=== PATIENT | female | born 1950 | race Caucasian/White ===

== ENCOUNTER 2017-10-21 05:16 | Day surgery (SDC) | payer MEDICAID ==
[2017-10-20 15:27] LABS: HEMATOCRIT 44.3 % (36.0-48.0); MCH 31.5 pg (26.0-34.0); MCHC 33.9 g/dL (31.0-37.0); MCV 93.1 fL (80.0-100.0); MEAN PLATELET VOLUME 10.4 fL (7.4-10.4); RBC 4.76 10x6/uL (4.00-5.40); RDW 13.6 % (11.5-14.5); WBC 16.1 10x3/uL (4.8-10.8)
[2017-10-20 15:56] LABS: CALC OSMOLALITY 282 mosm/kg (275-300); CALCIUM 9.3 mg/dL (8.5-10.1); CARBON DIOXIDE 24.7 mmol/L (21.0-32.0); CHLORIDE - SERUM 105 mmol/L (98-107); CREATININE - SERUM 0.8 mg/dL (0.6-1.3); GLUCOSE 90 mg/dL (74-106); POTASSIUM - SERUM 4.1 mmol/L (3.5-5.1); SODIUM 140 mmol/L (136-145); UREA NITROGEN 23 mg/dL (7-18); eGFR NON AFRICAN AMERICAN 76 mL/min (90-120)
[~2017-10-21] VITALS: Ht 162.6 cm; Wt 102.1 kg
--- NOTE | ~2017-10-21 | OP ---
PATIENT NAME: JOSH BAUER MEDICAL RECORD: [id number] :54 LOCATION:DJoseOPS ADMISSION DATE: SURGEON: SANDRA HENDERSON DPM DATE OF OPERATION: 10/21/2017 PREOPERATIVE DIAGNOSES: 1. Osteoarthritis, right first MPJ, with hallux varus. 2. Fracture, right fifth metatarsal. 3. Spur, right dorsal hallux IPJ. POSTOPERATIVE DIAGNOSES: 1. Osteoarthritis, right first MPJ, with hallux varus. 2. Fracture, right fifth metatarsal. 3. Spur, right dorsal hallux IPJ. PROCEDURES: 1. Right first MPJ fusion. 2. ORIF, right fifth metatarsal. 3. Spur excision, right dorsal IPJ of the hallux. ANESTHESIA: General with local infiltrate utilizing lidocaine and Marcaine plain. A 20 cc total around the first ray of the right foot as well as the proximal lateral aspect of the right foot. HEMOSTASIS: Right thigh tourniquet at 350 mmHg. PREOPERATIVE DETAILS: The patient was taken to the OR and placed on the operating table in a supine position. This was followed by induction of general anesthesia and infiltration of local anesthetic. The right extremity was then prepped and draped in usual aseptic technique followed by exsanguination of the extremity and inflation of tourniquet. PROCEDURE #1: Right first MPJ fusion. A #15 blade was used to create a 5-cm linear incision over the dorsal aspect of the right first MPJ. The incision was deepened down through subcutaneous tissue. A longitudinal capsular incision was made, exposing the dorsal aspect of the head of the first metatarsal and base of the phalanx. The soft tissue was freed from the joint. The plantar structures were freed with a scoop elevator. At this time, a guidewire was placed in the head of the first metatarsal up to the shaft and a cone reamer was used to remove the cartilaginous surface. The K-wire was then removed. Utilizing curettes, the cartilaginous surface of the base of the proximal phalanx was removed. A rongeur was used to clean up the joint around the periphery. Temporary fixation was placed and a 5-hole plate with one screw crossing the fusion site was placed with excellent rigid internal fixation and C-arm verifying good placement and alignment. Wound was flushed. The capsule was reapproximated. Prior to that, there was a small deficit on the medial aspect of the fusion site where some bone paste or putty was injected to fill the deficit. The wound was flushed. The capsule was repaired with 2-0 Vicryl, the subcutaneous tissue with 4-0 Rapide, and the skin was closed with 4-0 Rapide in a subcuticular technique followed by Dermabond. PROCEDURE #2: ORIF, right fifth metatarsal. Utilizing fluoroscopy as a guide, a small stab incision was made approximately 3 cm proximal to the styloid process. Blunt dissection was used under fluoroscopy to access the base of the fifth metatarsal. A K-wire for guide was placed in the fifth metatarsal OPERATIVE REPORT [id number] JOSH BAUER starting at the base into the shaft. Verification of being in the shaft was verified via AP and lateral fluoroscopy. A drill was then placed over the K-wire. It was deemed necessary that a 4.5 screw be used. The hole was then tapped and a 48-mm screw was then placed in the deficit under fluoroscopy guide, noting excellent fixation and purchase of the screw as well as alignment of the fracture. The K-wire was then removed. Fluoroscopy was used to verify good placement and the wound was closed with 4-0 Rapide in a simple interrupted technique followed by Dermabond. PROCEDURE #3: Spur removal, dorsal aspect of the right hallux IPJ. A #15 blade was used to create a linear incision on the dorsal aspect of the medial IPJ of the right hallux. The incision was deepened down to the joint capsule. Linear capsular incision was made and the spur was freed from surrounding soft tissue structures. It was removed with a rongeur and smoothed with a bone rasp. The wound was flushed and the skin was reapproximated with 4-0 Rapide in a simple interrupted technique. The incision itself was approximately 7 mm in length. Adaptic, 4 x 4, and Conform were used to dress all wounds followed by application of modified Perez compression dressing. Tourniquet was deflated. POSTOPERATIVE DETAILS: The patient tolerated the procedure well and left the OR with vital signs stable and vascular status at preop levels. The patient was transported to recovery per anesthesia in stable condition. TRANSINT:[id number] Voice Confirmation ID: [id number] DOCUMENT ID: [id number] SANDRA HENDERSON DPM at 1150 CC: [id number] DICTATION DATE: 10/21/17 1029 BENEFITS COUNSELOR: 10/21/17 1126 [facility] [address] [id number]
[~2017-10-21 05:16] MED LIST: ASCORBIC ACID500 MG PO; ASPIRIN EC81 M1 PO; BENADRYL25 MG PO; BUPROPION HCL100 MG PO; CALCIUM/MG/ZINC PO; CENTRUM SILVER1 EAC3 PO; CLARITIN 10 MG10 MG PO; FLAXSEED OIL1000 MG PO; FLUTICASONE PRO16 GM NASAL; LASIX20 MG PO; LIPITOR40 MG PO; METOPROLOL TART25 MG PO; OMEGA 3 FISH OI1 CAP PO; PAROXETINE HCL10 MG PO; PRINIVIL20 MG PO; PROAIR HFA8.5 GM INH; VITAMIN B-12500 MCG PO; VITAMIN D31000 UNIT PO
[2017-10-21 07:31] VITALS: Ht 162.6 cm; Wt 102.1 kg
== END 2017-10-21 13:00 | disposition home or self-care (01) ==
LOC: D.OPS 05:16 → D.PAN 08:00 → D.OPS 08:00
PROVIDERS: Anesthesiology
DX: M18.11 Unilateral primary osteoarthritis of first carpometacarpal joint, right hand (principal); M20.31 Hallux varus (acquired), right foot; S92.351A Displaced fracture of fifth metatarsal bone, right foot, initial encounter for closed fracture; X58.XXXA Exposure to other specified factors, initial encounter; M77.51 Other enthesopathy of right foot and ankle; Z01.812 Encounter for preprocedural laboratory examination

== ENCOUNTER → 2018-02-16 18:31 | Outpatient (CLI) | payer MEDICARE, MEDICAID ==
[2017-10-21 07:31] VITALS: BMI 38.7
== END | disposition home or self-care (01) ==
LOC: D.MAMMO 09:15
DX: Z12.31 Encounter for screening mammogram for malignant neoplasm of breast (principal)

== ENCOUNTER 2018-03-11 08:00 | Outpatient (CLI) | payer MEDICARE, MEDICAID ==
[2017-10-21 07:31] VITALS: BMI 38.7
== END 2018-03-11 09:00 | disposition home or self-care (01) ==
LOC: D.MAMMO 08:00
DX: R92.8 Other abnormal and inconclusive findings on diagnostic imaging of breast (principal)

== ENCOUNTER → 2018-05-19 08:59 | Outpatient (CLI) | payer MEDICARE, MEDICAID ==
[2017-10-21 07:31] VITALS: BMI 38.7
== END | disposition home or self-care (01) ==
LOC: D.CT 08:00
DX: R10.32 Left lower quadrant pain (principal)

== ENCOUNTER 2018-06-25 07:07 | Day surgery (SDC) | payer MEDICARE, MEDICAID ==
[~2018-06-25] VITALS: Ht 162.6 cm; Wt 98.9 kg
--- NOTE | ~2018-06-25 | OP ---
PATIENT NAME: JOSH BAUER MEDICAL RECORD: [id number] :54 LOCATION:D.OPS ADMISSION DATE: SURGEON: SHEKHAR TEMPLETON MD DATE OF OPERATION: 06/25/2018 PREOPERATIVE DIAGNOSES: 1. Hiatal hernia. 2. Coronary artery disease. 3. Hypertension. 4. Hypercholesterolemia. 5. Chronic obstructive pulmonary disease. 6. Morbid obesity with a body mass index of 38. POSTOPERATIVE DIAGNOSES: 1. Hiatal hernia. 2. Coronary artery disease. 3. Hypertension. 4. Hypercholesterolemia. 5. Chronic obstructive pulmonary disease. 6. Morbid obesity with a body mass index of 38. PROCEDURE: EGD with biopsy. SURGEON: Shekhar Templeton MD REPORT OF PROCEDURE: An Olympus endoscope was advanced through the mouth and esophagus. We passed through the GE junction into the hiatal hernia. This extended about 6 cm down through the diaphragmatic hiatus and into the remaining body and antrum of the stomach. We passed through this into the second portion of the duodenum. There was no sign of inflammatory changes present in the duodenum. As we pulled back, the stomach itself appeared to be normal with no signs of any masses, lesions or ulcerations. The biopsy was taken of the antrum of the stomach and sent off for permanent specimen. Retroflexed view showed the patient had a large hiatal hernia. As we pulled back into this hiatal hernia, we found that the GE junction was sitting at about 34 cm from the teeth. A biopsy was taken at the GE junction. The Z-line appeared to be straight and intact with no signs of any inflammatory changes and there was no sign of esophagitis. At this point, the insufflation and the scope were removed. As we pulled back through the esophagus again no masses, lesions or ulcerations were seen. COMPLICATIONS: None. CONDITION: Stable. ANESTHESIA: TIVA. BLOOD LOSS: Minimal. TRANSINT:[id number] Voice Confirmation ID: [id number] DOCUMENT ID: [id number] OPERATIVE REPORT [id number] LIZETTEMONICA SALMONTHISienna El SHEKHAR TEMPLETON MD at 0916 CC: BRIA ZAMUDIO MD [id number] DICTATION DATE: 06/25/18 1118 WIRELESS TECHNICIAN: 06/25/18 1127 [facility] 06/25/18 [place] [address]
[~2018-06-25 07:07] MED LIST changes: +BUPROPION HCL100 M1 PO; -BUPROPION HCL100 MG PO
[2018-06-25 07:56] LABS: HEMATOCRIT 42.2 % (36.0-48.0); HEMOGLOBIN 14.2 g/dL (12-16); LYMPHOCYTES 31.1 % (15-50); MCH 31.1 pg (26.0-34.0); MCHC 33.6 g/dL (31.0-37.0); MCV 92.3 fL (80.0-100.0); MEAN PLATELET VOLUME 10.1 fL (7.4-10.4); NEUTROPHILS 61.1 % (40-80); PLATELET COUNT 327 10x3/uL (130-400); RBC 4.57 10x6/uL (4.00-5.40); WBC 10.9 10x3/uL (4.8-10.8)
[2018-06-25 08:05] LABS: CALCIUM 8.5 mg/dL (8.5-10.1); CARBON DIOXIDE 28.1 mmol/L (21.0-32.0); CREATININE - SERUM 0.9 mg/dL (0.6-1.3); POTASSIUM - SERUM 4.1 mmol/L (3.5-5.1)
[2018-06-25 08:52] VITALS: BP 135/83; Ht 162.6 cm; Wt 98.9 kg
== END 2018-06-25 12:05 | disposition home or self-care (01) ==
LOC: D.OPS 07:07
PROVIDERS: Anesthesiology
DX: K44.9 Diaphragmatic hernia without obstruction or gangrene (principal); I10 Essential (primary) hypertension; E66.9 Obesity, unspecified

== ENCOUNTER 2018-07-08 06:45 | Inpatient (IN) | payer MEDICARE, MEDICAID ==
[2018-07-07 16:15] LABS: BASOPHILS 0.5 % (0-2); EOSINOPHILS 3.1 % (0-7); HEMATOCRIT 44.1 % (36.0-48.0); HEMOGLOBIN 14.6 g/dL (12-16); IMMATURE GRANULOCYTES 0.4 % (0-5); MCH 31.5 pg (26.0-34.0); MCHC 33.1 g/dL (31.0-37.0); MCV 95.2 fL (80.0-100.0); MEAN PLATELET VOLUME 10.6 fL (7.4-10.4); MONOCYTES 10.6 % (2-11); NEUTROPHILS 52.4 % (40-80); PLATELET COUNT 358 10x3/uL (130-400); RBC 4.63 10x6/uL (4.00-5.40); RDW 13.6 % (11.5-14.5); WBC 10.7 10x3/uL (4.8-10.8)
[2018-07-07 16:23] LABS: CALC OSMOLALITY 279 mosm/kg (275-300); CALCIUM 8.9 mg/dL (8.5-10.1); CARBON DIOXIDE 28.6 mmol/L (21.0-32.0); CHLORIDE - SERUM 105 mmol/L (98-107); CREATININE - SERUM 0.7 mg/dL (0.6-1.3); GLUCOSE 101 mg/dL (74-106); POTASSIUM - SERUM 3.7 mmol/L (3.5-5.1); SODIUM 140 mmol/L (136-145); UREA NITROGEN 16 mg/dL (7-18); eGFR NON AFRICAN AMERICAN 89 mL/min (90-120)
[~2018-07-08] VITALS: Ht 162.6 cm; Wt 100.2 kg
--- NOTE | ~2018-07-08 | MORECARE ---
CASE MANAGEMENT DISCHARGE SUMMARY PATIENT: JOSH BAUER UNIT: [id number] ADM DATE: 07/11/18 AGE: 67 : 54 SEX: F ROOM/BED: D.2210 AUTHOR: ALIN BENSON PHYSICIAN: REFERRING PHYSICIAN: ALLEN TEMPLETON MD DATE OF SERVICE: 07/13/18 Discharge Plan Patient Name: JOSH BAUER Facility: [facility]:[place] : 1950 Planned Disposition: Home with Home Health Anticipated Discharge Date: Discharge Date: Expected LOS: Initial Reviewer: [email or web address] Initial Review Date: 07/11/2018 Generated: 07/13/18 2:56 pm Comments DCP- Discharge Planning Updated by [email or web address]: Avis Marie on 07/13/18 12:[address] PATIENT IS DISCHARGING HOME TODAY, A TAXI WILL BE PICKING HER UP FROM HER INSURANCE TAXI CALL CENTER NUMBER IS [phone] RESV NUMBER IS [id number] PATIENT STATED THAT HER NEIGHBOR WILL BE THERE TO HELP HER. CM WILL CONTINUE TO FOLLOW AND ASSIST WITH DC PLANNING NEEDED DCP- Discharge Planning Updated by [email or web address]: Avis Marie on 07/12/18 2:[address] referral to I[facility]oto DCP- Discharge Planning Updated by [email or web address]: Avis Marie on 07/12/18 2:[address] Patient Name: JOSH BAUER Admission Status: Elective Accout number: [id number] Admission Date: 07-11-2018 : 1950 Admission Diagnosis: Attending: ALLEN TEMPLETON Current LOS: 1 Anticipated DC Date: Planned Disposition: Home with Home Health Primary Insurance: [facility] MEDICARE SOLUTIONS Discharge Planning Comments: CM met with patient to assess discharge planning needs. Patient lives independently at home where she plans to return at discharge. She lives in an apartment where her neighbors can help her. There is an elevator that she uses. She stated that she has a car and Dina (neighbor) will be the one to take her home when she is discharged. She has a walker at home that she uses. She would like [facility] CLAUDIO signed. CM will continue to follow and assist with DC planning as needed. Patient is requesting to be discharged today. Dr Templeton notified and stated that he will be over to talk with her in a little bit. Cari notified Regulatory Affairs Director: Avis Marie DCPIA - Discharge Planning Initial Assessment Updated by [email or web address]: Avis Marie on 07/12/18 3:04 pm * Is the patient Alert and Oriented? Yes * How many steps to enter\exit or inside your home? elevator * PCP [facility] * [facility] * Preadmission Environment Home Alone * ADLs Independent * Equipment Walker * List name and contact numbers for known caregivers / representatives who currently or will assist patient after discharge: AYLA ( [phone]) * Verbal permission to speak to the caregivers and representatives has been obtained from the patient. N/A * Community resources currently utilized None * Additional services required to return to the preadmission environment? Yes * Can the patient safely return to the preadmission environment? Yes * Has this patient been hospitalized within the prior 30 days at any hospital? No Last DP export: 07/12/18 2:22 Patient Name: JOSH BAUER Page [phone] at 1356 All edits/amendments must be made on the electronic document DICTATION DATE: 07/13/18 1356 WORKFORCE MANAGEMENT CONSULTANT: AIDE 07/13/18 1356 RPT#: [id number] DC DATE: STATUS: ADM IN [facility] [address] [place] [address] END OF REPORT
--- NOTE | ~2018-07-08 | MORECARE ---
CASE MANAGEMENT DISCHARGE SUMMARY PATIENT: JOSH BAUER UNIT: [id number] ADM DATE: 07/11/18 AGE: 67 : 54 SEX: F ROOM/BED: D.2210 AUTHOR: ALIN BENSON PHYSICIAN: REFERRING PHYSICIAN: ALLEN TEMPLETON MD DATE OF SERVICE: 07/12/18 Discharge Plan Patient Name: JOSH BAUER [facility] : 1950 Planned Disposition: Home with Home Health Anticipated Discharge Date: Discharge Date: Expected LOS: Initial Reviewer: [email or web address] Initial Review Date: 07/11/2018 Generated: 07/12/18 4:05 pm DCPIA - Discharge Planning Initial Assessment Updated by [email or web address]: Avis Marie on 07/12/18 3:04 pm * Is the patient Alert and Oriented? Yes * How many steps to enter\exit or inside your home? elevator * PCP [place] * [facility] * Preadmission Environment Home Alone * ADLs Independent * Equipment Walker * List name and contact numbers for known caregivers / representatives who currently or will assist patient after discharge: AYLA ( [phone]) * Verbal permission to speak to the caregivers and representatives has been obtained from the patient. N/A * Community resources currently utilized None * Additional services required to return to the preadmission environment? Yes * Can the patient safely return to the preadmission environment? Yes * Has this patient been hospitalized within the prior 30 days at any hospital? No Patient Name: JOSH BAUER Page [phone] at 1505 All edits/amendments must be made on the electronic document DICTATION DATE: 07/12/18 1505 MARKET RELATIONSHIP MANAGER: AIDE 07/12/18 1505 RPT#: [id number] DC DATE: STATUS: ADM IN [facility] [address] [place] [address] END OF REPORT
--- NOTE | ~2018-07-08 | OP ---
PATIENT NAME: JOSH BAUER MEDICAL RECORD: [id number] :54 LOCATION:D.MS [place] ADMISSION DATE:07/11/18 SURGEON: SHEKHAR TEMPLETON MD DATE OF OPERATION: 07/08/2018 PREOPERATIVE DIAGNOSES: 1. Paraesophageal hernia. 2. Chronic left lower quadrant pain. 3. Hypercholesterolemia. 4. Hypertension. 5. Morbid obesity with a BMI of 38. 6. Coronary artery disease. 7. Chronic obstructive pulmonary disease. POSTOPERATIVE DIAGNOSES: 1. Paraesophageal hernia. 2. Chronic left lower quadrant pain secondary to hernia. 3. Hypercholesterolemia. 4. Hypertension. 5. Morbid obesity with a BMI of 38. 6. Coronary artery disease. 7. Chronic obstructive pulmonary disease. PROCEDURES: 1. Laparoscopic paraesophageal hernia repair. 2. Laparoscopic left lower quadrant ventral hernia repair. SURGEON: Shekhar Templeton MD CITY MAIL CARRIER: Arpita Champion APRN REPORT OF PROCEDURE: The patient's abdomen was prepped and draped in sterile fashion. A Veress needle was inserted in the left upper quadrant and the abdomen was insufflated. An 11-mm Visiport trocar was inserted in the midline just above the umbilicus. The Veress needle was inspected and there was no sign of any injury to bowel or surrounding structures. An 11-mm trocar was then placed in the left subcostal region, a 5-mm trocar was placed in the epigastrium, a 5-mm trocar was placed in the right lateral abdomen, and the final 5-mm trocar was placed in the left lateral abdomen. A liver retractor was inserted and the left lobe of the liver was elevated. You could clearly visualize that the patient had a large hiatal hernia present. On traction of this, the patient had about half of the stomach rotated up into the chest cavity. Upon release this would fall back up into the thoracic cavity. We began our dissection on the lesser curvature of the stomach taking down the lesser omentum using Harmonic scalpel. We continued this dissection to the right side of the right ofe. We dissected this anteriorly and posteriorly and up into the thoracic cavity until we had this portion of the esophagus and stomach freed up. We then took down the short gastrics on the superior aspect of the greater curvature of the stomach again using Harmonic scalpel. As we continued this dissection up to the left side of the right ofe, we dissected superiorly and posteriorly until we had a 360-degree inspection of the esophagus. The esophagus and stomach at this point laid freely in the abdominal cavity without any traction. The patient had approximately half of the stomach up in the chest at the beginning of the case. The esophageal hiatus was then closed with interrupted 0 Ti-Cron times 3 with good approximation of the tissue. OPERATIVE REPORT [id number] JOSH BAUER We then performed a 360-degree posterior wrap of the fundus of the stomach around the distal esophagus. This was performed with interrupted 0 Polydeks times 3 with the top and the bottom suture incorporating a bite of the esophagus. The wrap appeared to be in good position and did not appear to be too tight. At this point, we irrigated out the left upper quadrant and saw there was no sign of any surgical bleeding. The liver retractor was then removed. At this point, we turned our attention to the patient's left lower quadrant, where she complained of chronic left lower quadrant pain. The left lower quadrant and pelvis appeared to be normal with no signs of any adhesions, but as we were in little more laterally, the patient had a clump of fatty tissue extending up towards the abdominal wall. As we began our dissection around this, we noted that this was actually a small hernia defect. As we pulled the tissue out, there was noted to be a very large amount of omentum that was stuck up into the hernia defect. As the omentum finally was released, we noted that the hernia defect was maybe a centimeter in greatest diameter. A small skin incision was made overlying this defect and a Mj-Candis suture passer device was used to reapproximate the tissues with an interrupted 0 Vicryl. There was good approximation of the tissue at the conclusion of this portion of the procedure. We then closed the 11-mm trocar site fascias using interrupted 0 Vicryls again using the Mj-Candis suture passer device. The ports and insufflation were then removed. The skin incisions were infused with a total of 10 mL of 0.25% Marcaine with epinephrine and then closed with subcutaneous 5-0 Monocryl. COMPLICATIONS: None. CONDITION: Stable. ANESTHESIA: General endotracheal and local. BLOOD LOSS: Minimal. TRANSINT:[id number] Voice Confirmation ID: [id number] DOCUMENT ID: [id number] SHEKHAR TEMPLETON MD at 0817 CC: BRIA ZAMUDIO MD [id number] DICTATION DATE: 07/08/18 1226 DISTRIBUTION CENTER MANAGER: 07/08/18 1242 ADM IN [place] [address] [place] [address]
--- NOTE | ~2018-07-08 | MORECARE ---
CASE MANAGEMENT DISCHARGE SUMMARY PATIENT: JSOH BAUER UNIT: [id number] ADM DATE: 07/11/18 AGE: 67 : 54 SEX: F ROOM/BED: D.2210 AUTHOR: ALIN BENSON PHYSICIAN: REFERRING PHYSICIAN: ALLEN TEMPLETON MD DATE OF SERVICE: 07/15/18 Discharge Plan Patient Name: JOSH BAUER Facility: [facility]:[place] : 1950 Planned Disposition: Home with Home Health Anticipated Discharge Date: Discharge Date: 07/13/2018 Expected LOS: 0 Initial Reviewer: [email or web address] Initial Review Date: 07/11/2018 Generated: 07/15/18 10:26 am Comments DCP- Discharge Planning Updated by [email or web address]: Avis Marie on 07/13/18 12:[address] PATIENT IS DISCHARGING HOME TODAY, A TAXI WILL BE PICKING HER UP FROM HER INSURANCE TAXI CALL CENTER NUMBER IS [phone] RESV NUMBER IS [id number] PATIENT STATED THAT HER NEIGHBOR WILL BE THERE TO HELP HER. CM WILL CONTINUE TO FOLLOW AND ASSIST WITH DC PLANNING NEEDED DCP- Discharge Planning Updated by [email or web address]: Avis Marie on 07/12/18 2:[address] [facility] DCP- Discharge Planning Updated by [email or web address]: Avis Marie on 07/12/18 2:[address] Patient Name: JOSH BAUER Admission Status: Elective Accout number: [id number] Admission Date: 07-11-2018 : 1950 Admission Diagnosis: Attending: ALLEN TEMPLETON Current LOS: 1 Anticipated DC Date: Planned Disposition: Home with Home Health Primary Insurance: [facility] MEDICARE SOLUTIONS Discharge Planning Comments: CM met with patient to assess discharge planning needs. Patient lives independently at home where she plans to return at discharge. She lives in an apartment where her neighbors can help her. There is an elevator that she uses. She stated that she has a car and Dina (neighbor) will be the one to take her home when she is discharged. She has a walker at home that she uses. She would like [facility] CLAUDIO signed. CM will continue to follow and assist with DC planning as needed. Patient is requesting to be discharged today. Dr Templeton notified and stated that he will be over to talk with her in a little bit. Cari notified Bowling Ball Patcher: Avis Marie DCPIA - Discharge Planning Initial Assessment Updated by [email or web address]: Avis Marie on 07/12/18 3:04 pm * Is the patient Alert and Oriented? Yes * How many steps to enter\exit or inside your home? elevator * PCP [facility] * [facility] * Preadmission Environment Home Alone * ADLs Independent * Equipment Walker * List name and contact numbers for known caregivers / representatives who currently or will assist patient after discharge: AYLA ( [phone]) * Verbal permission to speak to the caregivers and representatives has been obtained from the patient. N/A * Community resources currently utilized None * Additional services required to return to the preadmission environment? Yes * Can the patient safely return to the preadmission environment? Yes * Has this patient been hospitalized within the prior 30 days at any hospital? No Last DP export: 07/13/18 12:56 Patient Name: JOSH BAUER Page 20122 at 0926 All edits/amendments must be made on the electronic document DICTATION DATE: 07/15/18925 TYPISTS SUPERVISOR: AIDE 07/15/18925 RPT#: [id number] DC DATE:07/13/18 STATUS: DIS IN [facility] [address] [place] [address] END OF REPORT
--- NOTE | ~2018-07-08 | MORECARE ---
CASE MANAGEMENT DISCHARGE SUMMARY PATIENT: JOSH BAUER UNIT: [id number] ADM DATE: 07/11/18 AGE: 67 : 54 SEX: F ROOM/BED: D.2210 AUTHOR: ALIN BENSON PHYSICIAN: REFERRING PHYSICIAN: ALLEN TEMPLETON MD DATE OF SERVICE: 07/12/18 Discharge Plan Patient Name: JOSH BAUER Facility: [facility]:[place] : 1950 Planned Disposition: Home with Home Health Anticipated Discharge Date: Discharge Date: Expected LOS: Initial Reviewer: [email or web address] Initial Review Date: 07/11/2018 Generated: 07/12/18 4:13 pm Comments DCP- Discharge Planning Updated by [email or web address]: Avis Marie on 07/12/18 2:[address] Patient Name: JOSH BAUER Admission Status: Elective Accout number: [id number] Admission Date: 07-11-2018 : 1950 Admission Diagnosis: Attending: ALLEN TEMPLETON Current LOS: 1 Anticipated DC Date: Planned Disposition: Home with Home Health Primary Insurance: [facility] MEDICARE SOLUTIONS Discharge Planning Comments: CM met with patient to assess discharge planning needs. Patient lives independently at home where she plans to return at discharge. She lives in an apartment where her neighbors can help her. There is an elevator that she uses. She stated that she has a car and Dina (neighbor) will be the one to take her home when she is discharged. She has a walker at home that she uses. She would like [facility] CLAUDIO signed. CM will continue to follow and assist with DC planning as needed. Patient is requesting to be discharged today. Dr Templeton notified and stated that he will be over to talk with her in a little bit. Cari notified Economic Research Analyst: Avis Marie DCPIA - Discharge Planning Initial Assessment Updated by [email or web address]: Avis Marie on 07/12/18 3:04 pm * Is the patient Alert and Oriented? Yes * How many steps to enter\exit or inside your home? elevator * PCP [facility] * [facility] * Preadmission Environment Home Alone * ADLs Independent * Equipment Walker * List name and contact numbers for known caregivers / representatives who currently or will assist patient after discharge: AYLA ( [phone]) * Verbal permission to speak to the caregivers and representatives has been obtained from the patient. N/A * Community resources currently utilized None * Additional services required to return to the preadmission environment? Yes * Can the patient safely return to the preadmission environment? Yes * Has this patient been hospitalized within the prior 30 days at any hospital? No External Providers External Provider: [facility] Next Contact Date: Service Request Date: Service Type: Resolution: Reviewer: Comments: Last DP export: 07/12/18 2:05 Patient Name: JOSH BAUER Page 28816 at 1514 All edits/amendments must be made on the electronic document DICTATION DATE: 07/12/181512 ENVIRONMENTAL MONITORING SPECIALIST: AIDE 07/12/181512 RPT#: [id number] DC DATE: STATUS: ADM IN [facility] [address] [place] [address] END OF REPORT
--- NOTE | ~2018-07-08 | MORECARE ---
CASE MANAGEMENT DISCHARGE SUMMARY PATIENT: JOSH BAUER UNIT: [id number] ADM DATE: 07/11/18 AGE: 67 : 52 SEX: F ROOM/BED: D.2210 AUTHOR: ALIN BENSON PHYSICIAN: REFERRING PHYSICIAN: ALLEN TEMPLETON MD DATE OF SERVICE: 07/12/18 Discharge Plan Patient Name: JOSH BAUER Facility: [facility]:[place] : 1950 Planned Disposition: Home with Home Health Anticipated Discharge Date: Discharge Date: Expected LOS: Initial Reviewer: [email or web address] Initial Review Date: 07/11/2018 Generated: 07/12/18 4:22 pm Comments DCP- Discharge Planning Updated by [email or web address]: Avis Marie on 07/12/18 2:[address] referral to [facility] DCP- Discharge Planning Updated by [id number]: Avis Marie on 07/12/18 2:[address] Patient Name: JOSH BAUER Admission Status: Elective Accout number: [id number] Admission Date: 07-11-2018 : 1950 Admission Diagnosis: Attending: ALLEN TEMPLETON Current LOS: 1 Anticipated DC Date: Planned Disposition: Home with Home Health Primary Insurance: [facility] MEDICARE SOLUTIONS Discharge Planning Comments: CM met with patient to assess discharge planning needs. Patient lives independently at home where she plans to return at discharge. She lives in an apartment where her neighbors can help her. There is an elevator that she uses. She stated that she has a car and Dina (neighbor) will be the one to take her home when she is discharged. She has a walker at home that she uses. She would like [facility] CLAUDIO signed. CM will continue to follow and assist with DC planning as needed. Patient is requesting to be discharged today. Dr Templeton notified and stated that he will be over to talk with her in a little bit. Cari notified Nutrition Helper: Avis Marie DCPIA - Discharge Planning Initial Assessment Updated by [email or web address]: Avis Marie on 07/12/18 3:04 pm * Is the patient Alert and Oriented? Yes * How many steps to enter\exit or inside your home? elevator * PCP [facility] * Pharmacy [facility] * Preadmission Environment Home Alone * ADLs Independent * Equipment Walker * List name and contact numbers for known caregivers / representatives who currently or will assist patient after discharge: AYLA ( [phone]) * Verbal permission to speak to the caregivers and representatives has been obtained from the patient. N/A * Community resources currently utilized None * Additional services required to return to the preadmission environment? Yes * Can the patient safely return to the preadmission environment? Yes * Has this patient been hospitalized within the prior 30 days at any hospital? No External Providers External Provider: [facility] Next Contact Date: Service Request Date: Service Type: Resolution: Reviewer: Comments: Last DP export: 07/12/18 2:13 Patient Name: JOSH BAUER Page [phone] at 1522 All edits/amendments must be made on the electronic document DICTATION DATE: 07/12/181521 INDUSTRIAL ROOFER HELPER: AIDE 07/12/18 152 RPT#: [id number] DC DATE: STATUS: ADM IN [facility] [address] [place] [address] END OF REPORT
[~2018-07-08 06:45] MED LIST changes: -CALCIUM/MG/ZINC PO; +OS-CAL500 MG PO
[2018-07-08 07:37] VITALS: BP 168/63; BMI 38.0
[2018-07-08 13:40] VITALS: BP 128/73
[2018-07-08 14:05] VITALS: BP 133/56; BMI 38.0
[2018-07-08 17:06] VITALS: BP 117/81
[2018-07-08 19:47] VITALS: BP 111/65
[2018-07-09 04:56] VITALS: BP 119/59
[2018-07-09 06:48] LABS: BASOPHILS 0.1 % (0-2); EOSINOPHILS 0 % (0-7); HEMATOCRIT 40.3 % (36.0-48.0); HEMOGLOBIN 13.1 g/dL (12-16); IMMATURE GRANULOCYTES 0.2 % (0-5); LYMPHOCYTES 12.4 % (15-50); MCH 31.1 pg (26.0-34.0); MCHC 32.5 g/dL (31.0-37.0); MCV 95.7 fL (80.0-100.0); MEAN PLATELET VOLUME 11.3 fL (7.4-10.4); MONOCYTES 7.8 % (2-11); NEUTROPHILS 79.5 % (40-80); PLATELET COUNT 314 10x3/uL (130-400); RBC 4.21 10x6/uL (4.00-5.40)
[2018-07-09 06:49] LABS: WBC 13.8 10x3/uL (4.8-10.8)
[2018-07-09 06:53] LABS: CALC OSMOLALITY 281 mosm/kg (275-300); CALCIUM 8.2 mg/dL (8.5-10.1); CARBON DIOXIDE 26.6 mmol/L (21.0-32.0); CHLORIDE - SERUM 105 mmol/L (98-107); CREATININE - SERUM 0.6 mg/dL (0.6-1.3); GLUCOSE 117 mg/dL (74-106); SODIUM 140 mmol/L (136-145); UREA NITROGEN 17 mg/dL (7-18); eGFR NON AFRICAN AMERICAN > 90 mL/min (90-120)
[2018-07-09 06:54] LABS: POTASSIUM - SERUM 4.7 mmol/L (3.5-5.1)
[2018-07-09 08:25] VITALS: BP 115/65
[2018-07-09 11:01] VITALS: Ht 162.6 cm; Wt 100.2 kg
[2018-07-09 12:50] VITALS: BP 125/70
[2018-07-09 17:11] VITALS: BP 134/66
[2018-07-09 19:44] VITALS: BP 99/57
[2018-07-10] VITALS (7 sets, daily range): BP systolic 119–171; BP diastolic 56–79
[2018-07-10 06:10] LABS: BASOPHILS 0.2 % (0-2); EOSINOPHILS 0.3 % (0-7); HEMATOCRIT 36.4 % (36.0-48.0); HEMOGLOBIN 11.9 g/dL (12-16); IMMATURE GRANULOCYTES 0.5 % (0-5); MCH 31.1 pg (26.0-34.0); MCHC 32.7 g/dL (31.0-37.0); MEAN PLATELET VOLUME 10.8 fL (7.4-10.4); MONOCYTES 9.5 % (2-11); NEUTROPHILS 74.5 % (40-80); PLATELET COUNT 259 10x3/uL (130-400); RBC 3.83 10x6/uL (4.00-5.40); RDW 13.9 % (11.5-14.5); WBC 14.7 10x3/uL (4.8-10.8)
[2018-07-10 06:32] LABS: CALCIUM 8.3 mg/dL (8.5-10.1); CARBON DIOXIDE 24.3 mmol/L (21.0-32.0); CHLORIDE - SERUM 104 mmol/L (98-107); CREATININE - SERUM 0.7 mg/dL (0.6-1.3); GLUCOSE 131 mg/dL (74-106); SODIUM 137 mmol/L (136-145); eGFR NON AFRICAN AMERICAN 89 mL/min (90-120)
[2018-07-10 06:33] LABS: CALC OSMOLALITY 279 mosm/kg (275-300); POTASSIUM - SERUM 3.6 mmol/L (3.5-5.1); UREA NITROGEN 23 mg/dL (7-18)
[2018-07-11 04:26] VITALS: BP 151/79
[2018-07-11 06:54] LABS: CALC OSMOLALITY 279 mosm/kg (275-300); CALCIUM 8.2 mg/dL (8.5-10.1); CARBON DIOXIDE 24.1 mmol/L (21.0-32.0); CHLORIDE - SERUM 106 mmol/L (98-107); CREATININE - SERUM 0.6 mg/dL (0.6-1.3); GLUCOSE 111 mg/dL (74-106); POTASSIUM - SERUM 3.8 mmol/L (3.5-5.1); SODIUM 139 mmol/L (136-145); eGFR NON AFRICAN AMERICAN > 90 mL/min (90-120)
[2018-07-11 06:58] LABS: BASOPHILS 0.3 % (0-2); EOSINOPHILS 1.1 % (0-7); HEMATOCRIT 34.8 % (36.0-48.0); HEMOGLOBIN 11.6 g/dL (12-16); IMMATURE GRANULOCYTES 0.4 % (0-5); LYMPHOCYTES 17.1 % (15-50); MCH 31.1 pg (26.0-34.0); MCHC 33.3 g/dL (31.0-37.0); MCV 93.3 fL (80.0-100.0); MEAN PLATELET VOLUME 10.9 fL (7.4-10.4); MONOCYTES 9.9 % (2-11); NEUTROPHILS 71.2 % (40-80); PLATELET COUNT 254 10x3/uL (130-400); RBC 3.73 10x6/uL (4.00-5.40); RDW 13.7 % (11.5-14.5); UREA NITROGEN 15 mg/dL (7-18); WBC 14.6 10x3/uL (4.8-10.8)
[2018-07-11 09:47] VITALS: BP 145/75
[2018-07-11 13:46] VITALS: BP 139/67
[2018-07-11 16:47] VITALS: BP 142/79
[2018-07-11 21:29] VITALS: BP 132/74
[2018-07-12 05:02] VITALS: BP 153/75
[2018-07-12 05:27] LABS: BASOPHILS 0.4 % (0-2); EOSINOPHILS 3.1 % (0-7); HEMATOCRIT 35.7 % (36.0-48.0); HEMOGLOBIN 11.7 g/dL (12-16); IMMATURE GRANULOCYTES 0.5 % (0-5); LYMPHOCYTES 21.7 % (15-50); MCH 30.8 pg (26.0-34.0); MCHC 32.8 g/dL (31.0-37.0); MCV 93.9 fL (80.0-100.0); MEAN PLATELET VOLUME 10.7 fL (7.4-10.4); MONOCYTES 8.6 % (2-11); NEUTROPHILS 65.7 % (40-80); PLATELET COUNT 292 10x3/uL (130-400); RDW 13.7 % (11.5-14.5); WBC 13.3 10x3/uL (4.8-10.8)
[2018-07-12 05:56] LABS: CALC OSMOLALITY 281 mosm/kg (275-300); CALCIUM 7.8 mg/dL (8.5-10.1); CARBON DIOXIDE 23.5 mmol/L (21.0-32.0); CHLORIDE - SERUM 106 mmol/L (98-107); CREATININE - SERUM 0.7 mg/dL (0.6-1.3); GLUCOSE 97 mg/dL (74-106); POTASSIUM - SERUM 3.8 mmol/L (3.5-5.1); SODIUM 141 mmol/L (136-145); UREA NITROGEN 14 mg/dL (7-18); eGFR NON AFRICAN AMERICAN 89 mL/min (90-120)
[2018-07-12 08:32] VITALS: BP 151/73
[2018-07-12 12:48] VITALS: BP 112/87
[2018-07-12 17:17] VITALS: BP 108/58
[2018-07-12 21:11] VITALS: BP 146/78
[2018-07-13 00:35] VITALS: BP 151/67
[2018-07-13 05:18] VITALS: BP 154/74
[2018-07-13 06:59] LABS: BASOPHILS 0.2 % (0-2); EOSINOPHILS 1.7 % (0-7); HEMATOCRIT 38.4 % (36.0-48.0); HEMOGLOBIN 12.9 g/dL (12-16); IMMATURE GRANULOCYTES 0.7 % (0-5); LYMPHOCYTES 14.4 % (15-50); MCH 31.4 pg (26.0-34.0); MCHC 33.6 g/dL (31.0-37.0); MCV 93.4 fL (80.0-100.0); MEAN PLATELET VOLUME 10.2 fL (7.4-10.4); MONOCYTES 8.5 % (2-11); NEUTROPHILS 74.5 % (40-80); RBC 4.11 10x6/uL (4.00-5.40); RDW 13.3 % (11.5-14.5); WBC 16.1 10x3/uL (4.8-10.8)
[2018-07-13 07:01] LABS: PLATELET COUNT 353 10x3/uL (130-400)
[2018-07-13 07:18] LABS: CALC OSMOLALITY 273 mosm/kg (275-300); CALCIUM 8.6 mg/dL (8.5-10.1); CARBON DIOXIDE 23.9 mmol/L (21.0-32.0); CHLORIDE - SERUM 102 mmol/L (98-107); CREATININE - SERUM 0.6 mg/dL (0.6-1.3); GLUCOSE 102 mg/dL (74-106); POTASSIUM - SERUM 3.6 mmol/L (3.5-5.1); SODIUM 138 mmol/L (136-145); UREA NITROGEN 8 mg/dL (7-18); eGFR NON AFRICAN AMERICAN > 90 mL/min (90-120)
[2018-07-13] MEDS ORDERED: NORCO-10 PO (08:16)
[2018-07-13] MEDS ORDERED: REGLAN10 MG PO (08:17)
[2018-07-13 08:35] VITALS: BP 148/76
== END 2018-07-13 16:42 | disposition home or self-care (01) | DRG 327 ==
LOC: D.OPS 06:45 → D.MS 06:45 → D.OPS 08:45 → D.PAN 10:30 → D.OPS 10:30 → D.MS 13:28 → OBSVTIME 13:29 → D.OPS 13:29 → D.SDCHOLD 13:29 → D.MS 13:30 → D.OPS 07-11 19:15 → D.MS 07-11 19:15
PROVIDERS: Surgery
PROC: 0BQT4ZZ Repair Diaphragm, Percutaneous Endoscopic Approach (ICD-10-PCS; principal; 2018-07-11)
PROC: 0WQF4ZZ Repair Abdominal Wall, Percutaneous Endoscopic Approach (ICD-10-PCS; 2018-07-11)
DX: K44.9 Diaphragmatic hernia without obstruction or gangrene (principal); K91.89 Other postprocedural complications and disorders of digestive system; K43.9 Ventral hernia without obstruction or gangrene; E78.00 Pure hypercholesterolemia, unspecified; I10 Essential (primary) hypertension; E66.01 Morbid (severe) obesity due to excess calories; Z68.38 Body mass index [BMI] 38.0-38.9, adult; I25.10 Atherosclerotic heart disease of native coronary artery without angina pectoris; J44.9 Chronic obstructive pulmonary disease, unspecified

== ENCOUNTER 2018-07-15 12:56 | Inpatient (IN) | payer MEDICARE, MEDICAID ==
[~2018-07-15] VITALS: Ht 162.6 cm; Wt 102.1 kg
--- NOTE | ~2018-07-15 | MORECARE ---
CASE MANAGEMENT DISCHARGE SUMMARY PATIENT: JOSH BAUER UNIT: [id number] ADM DATE: 07/15/18 AGE: 67 : 52 SEX: F ROOM/BED: D.1213 AUTHOR: ALIN BENSON PHYSICIAN: REFERRING PHYSICIAN: MARIPOSA VOSS MD DATE OF SERVICE: 07/18/18 Discharge Plan Patient Name: JOSH BAUER Facility: [facility]:[place] : 1950 Planned Disposition: Home Health Service Anticipated Discharge Date: 07/17/18 Discharge Date: 07/17/2018 Expected LOS: 2 Initial Reviewer: [id number] Initial Review Date: 07/15/2018 Generated: 07/18/18 7:15 pm DCP- Discharge Planning Updated by [email or web address]: Mariaelena Dial on 07/15/18 5:[address] Patient Name: JOSH BAUER Admission Status: ER Accout number: [id number] Admission Date: 07-15-2018 : 1950 Admission Diagnosis: Attending: MARIPOSA VOSS Current LOS: 1 Anticipated DC Date: Planned Disposition: Primary Insurance: [facility] MEDICARE SOLUTIONS Discharge Planning Comments: CM MET WITH PATIENT ABOUT DC PLANNING/NEEDS. STATES PLANS TO DISCHARGE HOME WITH [facility]. PATIENT DOESN'T KNOW OF ANY NEEDS AT THIS TIME. CM WILL FOLLOW AND ASSIST NEEDED WITH DC PLANNING/NEEDS. Manager Physical: Mariaelena Dial DCPIA - Discharge Planning Initial Assessment Updated by [email or web address]: Mariaelena Dial on 07/15/18 6:21 pm * Is the patient Alert and Oriented? Yes * PCP [facility] * Pharmacy [facility] * ADLs Independent * Equipment None * List name and contact numbers for known caregivers / representatives who currently or will assist patient after discharge: MARIAELENA, DAUGHTER, * Community resources currently utilized Home Health * Please name any agencies selected above. [facility] * Has this patient been hospitalized within the prior 30 days at any hospital? Yes Last DP export: 07/15/18 5:38 Patient Name: JOSH BAUER Page 43049 at 1815 All edits/amendments must be made on the electronic document DICTATION DATE: 07/18/181813 RN STARS: AIDE 07/18/181813 RPT#: [id number] DC DATE:07/17/18 STATUS: DIS IN [facility] [address] [place] [address] END OF REPORT
--- NOTE | ~2018-07-15 | MORECARE ---
CASE MANAGEMENT DISCHARGE SUMMARY PATIENT: JOSH BAUER UNIT: [id number] ADM DATE: 07/15/18 AGE: 67 : 52 SEX: F ROOM/BED: D.1213 AUTHOR: ALIN BENSON PHYSICIAN: REFERRING PHYSICIAN: MARIPOSA VOSS MD DATE OF SERVICE: 07/15/18 Discharge Plan Patient Name: JOSH BAUER [facility] : 1950 Planned Disposition: Anticipated Discharge Date: Discharge Date: Expected LOS: Initial Reviewer: [id number] Initial Review Date: 07/15/2018 Generated: 07/15/18 7:24 pm DCPIA - Discharge Planning Initial Assessment Updated by [email or web address]: Mariaelena Dial on 07/15/18 6:21 pm * Is the patient Alert and Oriented? Yes * PCP [facility] * Pharmacy [facility] * ADLs Independent * Equipment None * List name and contact numbers for known caregivers / representatives who currently or will assist patient after discharge: MARIAELENA, DAUGHTER, * Community resources currently utilized Home Health * Please name any agencies selected above. [facility] * Has this patient been hospitalized within the prior 30 days at any hospital? Yes Patient Name: JOSH BAUER Page [phone] at 1824 All edits/amendments must be made on the electronic document DICTATION DATE: 07/15/181823 LICENSED PRACTICAL NURSE INSTRUCTOR: AIDE 07/15/181823 RPT#: [id number] DC DATE: STATUS: ADM IN [facility] [address] [place] [address] END OF REPORT
--- NOTE | ~2018-07-15 | MORECARE ---
CASE MANAGEMENT DISCHARGE SUMMARY PATIENT: JOSH BAUER UNIT: [id number] ADM DATE: 07/15/18 AGE: 67 : 52 SEX: F ROOM/BED: D.1213 AUTHOR: MARCELINO,ALIN PHYSICIAN: REFERRING PHYSICIAN: MARIPOSA VOSS MD DATE OF SERVICE: 07/18/18 Discharge Plan Patient Name: JOSH BAUER Facility: [facility]:[place] : 1950 Planned Disposition: Home Health Service Anticipated Discharge Date: 07/17/18 Discharge Date: 07/17/2018 Expected LOS: 2 Initial Reviewer: [email or web address] Initial Review Date: 07/15/2018 Generated: 07/18/18 7:21 pm Comments DCP- Discharge Planning Updated by [email or web address]: Yolande Haley on 07/18/18 5:[address] LATE ENTRY 07/17/2018 PATIENT DISCHARGED TO HOME WITH [facility]. SHE HAD BEEN ON SERVICE WITH THEM PRIOR TO ADMISSION. . CM SPOKE WITH THE THREAD REELER NURSE, GASTON. REC CB WITH ACCEPTANCE. FAXED REFERRAL. PATIENT DISCHARGED HOME TO [facility]IA [facility]. 07/18/18 REC CALL THIS AM FROM GASTON, HOME HEALTH NURSE. PATIENT DID NOT HAVE HER ANTIBIOTICS. HER PHARMACY IS CLOSED ON THE WEEKEND. SPOKE WITH THE NURSING LIME SLUDGE KILN OPERATOR. MEDICATION OBTAINED FOR TODAY. PATIENT HAS NO WAY TO PICKUP THE MEDICATION. NO FAMILY AVAILABLE DUE TO SERVICE FOR FAMILY MEMBER. CM DELIVERED THE MEDICATION TO [facility]. DCP- Discharge Planning Updated by [email or web address]: Mariaelena Dial on 07/15/18 5:[address] Patient Name: JOSH BAUER Admission Status: ER Accout number: [id number] Admission Date: 07-15-2018 : 1950 Admission Diagnosis: Attending: MARIPOSA VOSS Current LOS: 1 Anticipated DC Date: Planned Disposition: Primary Insurance: [facility] MEDICARE SOLUTIONS Discharge Planning Comments: CM MET WITH PATIENT ABOUT DC PLANNING/NEEDS. STATES PLANS TO DISCHARGE HOME WITH [facility]. PATIENT DOESN'T KNOW OF ANY NEEDS AT THIS TIME. CM WILL FOLLOW AND ASSIST NEEDED WITH DC PLANNING/NEEDS. Die Trouble Shooter: Mariaelena Dial DCPIA - Discharge Planning Initial Assessment Updated by [email or web address]: Mariaelena Dial on 07/15/18 6:21 pm * Is the patient Alert and Oriented? Yes * PCP [facility] * Pharmacy [facility] * ADLs Independent * Equipment None * List name and contact numbers for known caregivers / representatives who currently or will assist patient after discharge: MARIAELENA, DAUGHTER, * Community resources currently utilized Home Health * Please name any agencies selected above. [facility] * Has this patient been hospitalized within the prior 30 days at any hospital? Yes Last DP export: 07/18/18 5:15 Patient Name: JOSH BAUER Page [phone] at 1821 All edits/amendments must be made on the electronic document DICTATION DATE: 07/18/181820 LIABILITY CLAIMS EXAMINER: AIDE 07/18/181820 RPT#: [id number] DC DATE:07/17/18 STATUS: DIS IN [facility] [address] [place] [address] END OF REPORT
--- NOTE | ~2018-07-15 | MORECARE ---
CASE MANAGEMENT DISCHARGE SUMMARY PATIENT: JOSH BAUER UNIT: [id number] ADM DATE: 07/15/18 AGE: 67 : 52 SEX: F ROOM/BED: D.1213 AUTHOR: ALIN BENSON PHYSICIAN: REFERRING PHYSICIAN: MARIPOSA VOSS MD DATE OF SERVICE: 07/15/18 Discharge Plan Patient Name: JOSH BAUER Facility: [facility]:[place] : 1950 Planned Disposition: Anticipated Discharge Date: Discharge Date: Expected LOS: Initial Reviewer: [email or web address] Initial Review Date: 07/15/2018 Generated: 07/15/18 7:38 pm DCP- Discharge Planning Updated by [email or web address]: Mariaelena Dial on 07/15/18 5:[address] Patient Name: JOSH BAUER Admission Status: ER Accout number: [id number] Admission Date: 07-15-2018 : 1950 Admission Diagnosis: Attending: MARIPOSA VOSS Current LOS: 1 Anticipated DC Date: Planned Disposition: Primary Insurance: [facility] MEDICARE SOLUTIONS Discharge Planning Comments: CM MET WITH PATIENT ABOUT DC PLANNING/NEEDS. STATES PLANS TO DISCHARGE HOME WITH [facility]. PATIENT DOESN'T KNOW OF ANY NEEDS AT THIS TIME. CM WILL FOLLOW AND ASSIST NEEDED WITH DC PLANNING/NEEDS. Clinical Trials Nurse: Mariaelena Dial DCPIA - Discharge Planning Initial Assessment Updated by [email or web address]: Mariaelena Dial on 07/15/18 6:21 pm * Is the patient Alert and Oriented? Yes * PCP [facility] * Pharmacy [facility] * ADLs Independent * Equipment None * List name and contact numbers for known caregivers / representatives who currently or will assist patient after discharge: MARIAELENA, DAUGHTER, * Community resources currently utilized Home Health * Please name any agencies selected above. [facility] * Has this patient been hospitalized within the prior 30 days at any hospital? Yes Last DP export: 07/15/18 5:24 Patient Name: JOSH BAUER Page [phone] at 1838 All edits/amendments must be made on the electronic document DICTATION DATE: 07/15/181837 MILK ROUTE SUPERVISOR: DM 07/15/181837 RPT#: [id number] DC DATE: STATUS: ADM IN [facility] [address] [place] [address] END OF REPORT
--- NOTE | ~2018-07-15 | MORECARE ---
CASE MANAGEMENT DISCHARGE SUMMARY PATIENT: JOSH BAUER UNIT: [id number] ADM DATE: 07/15/18 AGE: 67 : 52 SEX: F ROOM/BED: D.1213 AUTHOR: MARCELINO,ALIN PHYSICIAN: REFERRING PHYSICIAN: MARIPOSA VOSS MD DATE OF SERVICE: 07/19/18 Discharge Plan Patient Name: JOSH BAUER Facility: [facility]:[place] : 1950 Planned Disposition: Home Health Service Anticipated Discharge Date: 07/17/18 Discharge Date: 07/17/2018 Expected LOS: 2 Initial Reviewer: [email or web address] Initial Review Date: 07/15/2018 Generated: 07/19/18 3:08 pm Comments DCP- Discharge Planning Updated by [email or web address]: Yolande Dorado on 07/18/18 5:[address] LATE ENTRY 07/17/2018 PATIENT DISCHARGED TO HOME WITH [facility]. SHE HAD BEEN ON SERVICE WITH THEM PRIOR TO ADMISSION. . CM SPOKE WITH THE PATTERN DUPLICATOR NURSE, GASTON. REC CB WITH ACCEPTANCE. FAXED REFERRAL. PATIENT DISCHARGED HOME TO [facility] VIA [facility]. 07/18/18 REC CALL THIS AM FROM GASTON, HOME HEALTH NURSE. PATIENT DID NOT HAVE HER ANTIBIOTICS. HER PHARMACY IS CLOSED ON THE WEEKEND. SPOKE WITH THE NURSING RN CLINICAL RESEARCH. MEDICATION OBTAINED FOR TODAY. PATIENT HAS NO WAY TO PICKUP THE MEDICATION. NO FAMILY AVAILABLE DUE TO SERVICE FOR FAMILY MEMBER. CM DELIVERED THE MEDICATION TO [facility]. DCP- Discharge Planning Updated by [id number]: Mariaelena Dial on 07/15/18 5:[address] Patient Name: JOSH BAUER Admission Status: ER Accout number: [id number] Admission Date: 07-15-2018 : 1950 Admission Diagnosis: Attending: MARIPOSA VOSS Current LOS: 1 Anticipated DC Date: Planned Disposition: Primary Insurance: [facility] MEDICARE SOLUTIONS Discharge Planning Comments: CM MET WITH PATIENT ABOUT DC PLANNING/NEEDS. STATES PLANS TO DISCHARGE HOME WITH [facility]. PATIENT DOESN'T KNOW OF ANY NEEDS AT THIS TIME. CM WILL FOLLOW AND ASSIST NEEDED WITH DC PLANNING/NEEDS. High Heel Builder: Mariaelena Dial DCPIA - Discharge Planning Initial Assessment Updated by [email or web address]: Mariaelena Dial on 07/15/18 6:21 pm * Is the patient Alert and Oriented? Yes * PCP [facility] * Pharmacy [facility] * ADLs Independent * Equipment None * List name and contact numbers for known caregivers / representatives who currently or will assist patient after discharge: MARIAELENA, DAUGHTER, * Community resources currently utilized Home Health * Please name any agencies selected above. [facility] * Has this patient been hospitalized within the prior 30 days at any hospital? Yes Last DP export: 07/18/18 5:21 Patient Name: JOSH BAUER Page [phone] at 1408 All edits/amendments must be made on the electronic document DICTATION DATE: 07/19/181407 SALT OPERATOR: AIDE 07/19/181407 RPT#: [id number] DC DATE:07/17/18 STATUS: DIS IN [facility] [address] [place] [address] END OF REPORT
[~2018-07-15 12:56] MED LIST changes: +NORCO-10 PO; +REGLAN10 MG PO
[2018-07-15 15:01] LABS: HEMOGLOBIN 12.1 g/dL (12-16); MCHC 33.6 g/dL (31.0-37.0); MCV 92.3 fL (80.0-100.0); MEAN PLATELET VOLUME 9.7 fL (7.4-10.4); PLATELET COUNT 410 10x3/uL (130-400); RDW 13.4 % (11.5-14.5); WBC 32.1 10x3/uL (4.8-10.8)
[2018-07-15 15:16] LABS: ALBUMIN 2.6 g/dL (3.4-5.0); ALKALINE PHOSPHATASE 80 U/L (46-116); ALT (SGPT) 23 U/L (10-68); BILIRUBIN - TOTAL 0.73 mg/dL (0.2-1.3); CALC OSMOLALITY 271 mosm/kg (275-300); CALCIUM 8.9 mg/dL (8.5-10.1); CARBON DIOXIDE 25.7 mmol/L (21.0-32.0); CHLORIDE - SERUM 100 mmol/L (98-107); CREATININE - SERUM 0.7 mg/dL (0.6-1.3); GLUCOSE 130 mg/dL (74-106); POTASSIUM - SERUM 3.6 mmol/L (3.5-5.1); PROTEIN - SERUM 6.7 g/dL (6.4-8.2); SODIUM 136 mmol/L (136-145); UREA NITROGEN 8 mg/dL (7-18); eGFR NON AFRICAN AMERICAN 89 mL/min (90-120)
[2018-07-15 16:20] LABS: LYMPHOCYTES 12 % (15-50); NEUTROPHILS 86 % (40-80); PLATELET ESTIMATE INCREASED
[2018-07-15 23:46] LABS: APPEARANCE CLEAR (CLEAR); COLOR DK YELLOW (YELLOW)
[2018-07-15 23:47] LABS: BACTERIA NONE SEEN /hpf (NONE SEEN); BILIRUBIN NEGATIVE (NEGATIVE); EPITHELIAL CELLS NSEEN /hpf (0-5); GLUCOSE NEGATIVE (NEGATIVE); KETONE LARGE mg/dL (NEGATIVE); MUCUS <1+ /lpf (NONE SEEN); NITRITE NEGATIVE (NEGATIVE); PROTEIN 1+ mg/dL (NEGATIVE); SPECIFIC GRAVITY 1.015 (1.005-1.020); UROBILINOGEN NORMAL (NORMAL); WHITE CELLS - URINE RARE /hpf (0-5)
[2018-07-16 01:08] VITALS: BP 141/61
[2018-07-16 05:25] LABS: BASOPHILS 0.2 % (0-2); EOSINOPHILS 0 % (0-7); HEMATOCRIT 34.1 % (36.0-48.0); HEMOGLOBIN 11.2 g/dL (12-16); IMMATURE GRANULOCYTES 1.2 % (0-5); LYMPHOCYTES 5.3 % (15-50); MCH 30.4 pg (26.0-34.0); MCHC 32.8 g/dL (31.0-37.0); MCV 92.7 fL (80.0-100.0); MONOCYTES 3.5 % (2-11); NEUTROPHILS 89.8 % (40-80); PLATELET COUNT 412 10x3/uL (130-400); RBC 3.68 10x6/uL (4.00-5.40); RDW 13.5 % (11.5-14.5); WBC 28.1 10x3/uL (4.8-10.8)
[2018-07-16 05:38] LABS: CALC OSMOLALITY 278 mosm/kg (275-300); CALCIUM 8.2 mg/dL (8.5-10.1); CARBON DIOXIDE 25.6 mmol/L (21.0-32.0); CHLORIDE - SERUM 104 mmol/L (98-107); CREATININE - SERUM 0.6 mg/dL (0.6-1.3); GLUCOSE 161 mg/dL (74-106); POTASSIUM - SERUM 3.9 mmol/L (3.5-5.1); SODIUM 139 mmol/L (136-145); UREA NITROGEN 8 mg/dL (7-18); eGFR NON AFRICAN AMERICAN > 90 mL/min (90-120)
[2018-07-16 06:02] VITALS: BP 139/79
[2018-07-16 08:10] VITALS: BP 123/51
[2018-07-16 12:00] VITALS: BP 136/76
[2018-07-16 12:29] VITALS: BMI 38.6
[2018-07-16 16:00] VITALS: BP 133/66
[2018-07-16 16:03] VITALS: Ht 162.6 cm; Wt 102.1 kg
[2018-07-16 20:31] VITALS: BP 137/56
[2018-07-17 06:51] VITALS: BP 154/71
[2018-07-17 06:57] LABS: BASOPHILS 0.1 % (0-2); EOSINOPHILS 0 % (0-7); HEMATOCRIT 33.8 % (36.0-48.0); HEMOGLOBIN 11.4 g/dL (12-16); IMMATURE GRANULOCYTES 2.1 % (0-5); LYMPHOCYTES 9.4 % (15-50); MCH 31.1 pg (26.0-34.0); MCHC 33.7 g/dL (31.0-37.0); MCV 92.1 fL (80.0-100.0); MEAN PLATELET VOLUME 10.1 fL (7.4-10.4); MONOCYTES 3.3 % (2-11); NEUTROPHILS 85.1 % (40-80); PLATELET COUNT 470 10x3/uL (130-400); RBC 3.67 10x6/uL (4.00-5.40); RDW 13.6 % (11.5-14.5); WBC 29.6 10x3/uL (4.8-10.8)
[2018-07-17 07:16] LABS: ALBUMIN 2.3 g/dL (3.4-5.0); ALKALINE PHOSPHATASE 87 U/L (46-116); BILIRUBIN - TOTAL 0.36 mg/dL (0.2-1.3); CALCIUM 8.2 mg/dL (8.5-10.1); CHLORIDE - SERUM 108 mmol/L (98-107); CREATININE - SERUM 0.7 mg/dL (0.6-1.3); GLUCOSE 158 mg/dL (74-106); MAGNESIUM - SERUM 1.9 mg/dL (1.8-2.4); POTASSIUM - SERUM 3.5 mmol/L (3.5-5.1); PROTEIN - SERUM 6.5 g/dL (6.4-8.2); SODIUM 143 mmol/L (136-145); eGFR NON AFRICAN AMERICAN 89 mL/min (90-120)
[2018-07-17 07:22] LABS: ALT (SGPT) 30 U/L (10-68); CALC OSMOLALITY 286 mosm/kg (275-300); CARBON DIOXIDE 23.5 mmol/L (21.0-32.0); UREA NITROGEN 11 mg/dL (7-18)
[2018-07-17 09:14] VITALS: BP 142/72
[2018-07-17 12:14] VITALS: BP 141/71
[2018-07-17] MEDS ORDERED: LEVAQUIN750 MG PO (15:32)
[2018-07-17] MEDS ORDERED: FLAGYL500 MG PO (15:33)
== END 2018-07-17 16:55 | disposition home health service (06) | DRG 194 ==
LOC: D.ER 12:56 → D.M3 16:43 → D.EDHOLD 16:43 → D.M3 17:40
PROVIDERS: Emergency Medicine; Family Medicine
DX: J18.9 Pneumonia, unspecified organism (principal); F32.0 Major depressive disorder, single episode, mild; I10 Essential (primary) hypertension; I25.10 Atherosclerotic heart disease of native coronary artery without angina pectoris; F41.9 Anxiety disorder, unspecified

== ENCOUNTER → 2019-02-25 12:06 | Outpatient (CLI) | payer MEDICARE, MEDICAID ==
[2018-07-16 16:03] VITALS: BMI 38.6
[~2019-02-25 12:06] MED LIST changes: +FLAGYL500 MG PO; +LEVAQUIN750 MG PO
== END | disposition home or self-care (01) ==
LOC: D.CT 12:06
PROVIDERS: ATTEND Internal Medicine Cardiovascular Disease
DX: I25.10 Atherosclerotic heart disease of native coronary artery without angina pectoris (principal); I71.9 Aortic aneurysm of unspecified site, without rupture; I71.4 Abdominal aortic aneurysm, without rupture

== ENCOUNTER 2019-05-09 08:00 | Outpatient (CLI) | payer MEDICARE, MEDICAID ==
[2018-07-16 16:03] VITALS: BMI 38.6
== END 2019-05-09 23:59 | disposition home or self-care (01) ==
LOC: D.MAMMO 08:00
PROVIDERS: ATTEND Family Medicine
DX: Z12.31 Encounter for screening mammogram for malignant neoplasm of breast (principal)

== ENCOUNTER 2020-02-13 17:56 | Inpatient (IN) | payer MEDICARE, MEDICAID ==
[~2020-02-13] VITALS: Ht 162.6 cm; Wt 99.8 kg
[2020-02-13 19:47] LABS: BILIRUBIN NEGATIVE (NEGATIVE); GLUCOSE NEGATIVE (NEGATIVE); KETONE NEGATIVE (NEGATIVE); NITRITE NEGATIVE (NEGATIVE); SPECIFIC GRAVITY 1.015 (1.005-1.020); UROBILINOGEN NORMAL (NORMAL)
[2020-02-13 19:48] LABS: RED CELLS - URINE OCC /hpf (0-5); WHITE CELLS - URINE 0-5 /hpf (NEGATIVE)
[2020-02-13 19:49] LABS: BACTERIA FEW /hpf (NEGATIVE)
[2020-02-13 20:07] LABS: BASOPHILS 0.3 % (0-2); EOSINOPHILS 0.7 % (0-7); HEMATOCRIT 43.2 % (36.0-48.0); IMMATURE GRANULOCYTES 0.4 % (0-5); LYMPHOCYTES 26.5 % (15-50); MCH 31.5 pg (26.0-34.0); MCHC 32.4 g/dL (31.0-37.0); MCV 97.1 fL (80.0-100.0); MEAN PLATELET VOLUME 10.7 fL (7.4-10.4); MONOCYTES 7.9 % (2-11); NEUTROPHILS 64.2 % (40-80); RBC 4.45 10x6/uL (4.00-5.40); RDW 13.3 % (11.5-14.5); WBC 17.8 10x3/uL (4.8-10.8)
[2020-02-13 20:08] VITALS: BP 149/77
[2020-02-13 20:08] LABS: PLATELET COUNT 356 10x3/uL (130-400)
[2020-02-13 20:32] LABS: ANION GAP 11.3 mmol/L (8-16); CARBON DIOXIDE 28.2 mmol/L (21.0-32.0); CREATININE - SERUM 0.9 mg/dL (0.6-1.3); POTASSIUM - SERUM 4.5 mmol/L (3.5-5.1)
[2020-02-13 20:38] LABS: ALBUMIN 3.4 g/dL (3.4-5.0); BILIRUBIN - TOTAL 0.75 mg/dL (0.2-1.3); PROTEIN - SERUM 7.4 g/dL (6.4-8.2)
--- NOTE | 2020-02-13 21:00 | NUR ---
PT TO CT VIA STRETCHER AT THIS TIME.
[2020-02-13 21:09] VITALS: BP 125/78
[2020-02-13 22:22] VITALS: BP 142/88
[2020-02-13 22:51] VITALS: BP 113/75
[2020-02-13 23:40] VITALS: BP 103/57
[2020-02-14 00:32] VITALS: BP 101/66
[2020-02-14 01:35] VITALS: BP 130/56; BMI 37.8
[2020-02-14 04:00] VITALS: BP 93/54
--- NOTE | 2020-02-14 06:13 | NUR ---
GAVE MORPHINE 4 MG IVP AND ZOFRAN 4 MG IVP FOR C/O PAIN AND NAUSEA. WILL MONITOR FOR EFFECTIVENESS.
--- NOTE | 2020-02-14 06:45 | NUR ---
ALERT AND ORIENTED, RESTING IN BED WITH EYES OPEN. NO C/O PAIN. NO S/S OF ACUTE DISTRESS NOTED. IV TO RIGHT HAND, NS INFUSING @ 125ML/HR. SITE PATENT WITHOUT REDNESS OR SWELLING. DENIES ANY NEEDS AT THIS TIME. CALL LIGHT IN REACH. WILL CONTINUE TO MONITOR.
[2020-02-14 09:23] LABS: ANION GAP 12.1 mmol/L (8-16); CARBON DIOXIDE 26.5 mmol/L (21.0-32.0)
[2020-02-14 09:27] LABS: POTASSIUM - SERUM 3.6 mmol/L (3.5-5.1)
[2020-02-14 09:28] LABS: BASOPHILS 0.5 % (0-2); EOSINOPHILS 1.5 % (0-7); HEMATOCRIT 39.2 % (36.0-48.0); HEMOGLOBIN 12.6 g/dL (12-16); IMMATURE GRANULOCYTES 0.2 % (0-5); LYMPHOCYTES 24.1 % (15-50); MCH 31.6 pg (26.0-34.0); MCHC 32.1 g/dL (31.0-37.0); MCV 98.2 fL (80.0-100.0); MEAN PLATELET VOLUME 10.4 fL (7.4-10.4); MONOCYTES 9.3 % (2-11); NEUTROPHILS 64.4 % (40-80); PLATELET COUNT 329 10x3/uL (130-400); RBC 3.99 10x6/uL (4.00-5.40); RDW 13.4 % (11.5-14.5)
[2020-02-14 09:30] VITALS: BP 112/61
[2020-02-14 09:31] LABS: WBC 12.4 10x3/uL (4.8-10.8)
[2020-02-14 09:33] LABS: APTT 30.8 SECONDS (22.8-39.4); INR 1.12 (0.85-1.17); PROTIME 14.3 SECONDS (11.6-15.0)
[2020-02-14 10:08] VITALS: BMI 37.7
[2020-02-14 10:33] VITALS: Ht 162.6 cm; Wt 99.8 kg
--- NOTE | 2020-02-14 13:03 | NUR ---
I have reviewed this patient and I concur with the Shift Assessment completed by the Licensed Practical Nurse today this shift.
[2020-02-14 17:51] VITALS: BP 115/59
--- NOTE | 2020-02-14 18:38 | NUR ---
RESTING IN BED WITH EYES OPEN. NO C/O PAIN. NO S/S OF ACUTE DISTRESS NOTED. DENIES ANY NEEDS AT THIS TIME. CALL LIGHT IN REACH. WILL CONTINUE TO MONITOR.
[2020-02-14 21:55] VITALS: BP 137/73
[2020-02-15] VITALS: BP 123/66
--- NOTE | 2020-02-15 02:20 | NUR ---
PT RESTING IN BED. EYES CLOSED. NO SIGNS OF DISTRESS. BREATHING EVEN AND UNLABORED. IV SITE RT HAND DRESSING CLEAN DRY AND INTACT. NO SIGNS OF INFECTION OR INFULTRATION. LUNG SOUNDS ACTIVE. BOWEL SOUNDS HYPOACTIVE. SKIN CLEAN DRY AND INTACT. ABD DISTENDED. WILL CONTINUE PLAN OF CARE. CALL LIGHT IN REACH. BED LOWERED AND LOCKED. BED RAILS UPX1.
[2020-02-15 04:00] VITALS: BP 127/73
--- NOTE | 2020-02-15 04:42 | NUR ---
I have reviewed this patient and I concur with the Shift Assessment completed by the Licensed Practical Nurse today this shift.
[2020-02-15 06:39] LABS: BASOPHILS 0.4 % (0-2); EOSINOPHILS 2.1 % (0-7); HEMATOCRIT 36.5 % (36.0-48.0); HEMOGLOBIN 11.6 g/dL (12-16); IMMATURE GRANULOCYTES 0.3 % (0-5); LYMPHOCYTES 30.2 % (15-50); MCH 31.1 pg (26.0-34.0); MCHC 31.8 g/dL (31.0-37.0); MCV 97.9 fL (80.0-100.0); MEAN PLATELET VOLUME 10.8 fL (7.4-10.4); MONOCYTES 8.1 % (2-11); NEUTROPHILS 58.9 % (40-80); PLATELET COUNT 326 10x3/uL (130-400); RBC 3.73 10x6/uL (4.00-5.40); RDW 13.2 % (11.5-14.5); WBC 11.5 10x3/uL (4.8-10.8)
[2020-02-15 07:04] LABS: CALC OSMOLALITY 279 mosm/kg (275-300); CALCIUM 7.5 mg/dL (8.5-10.1); CARBON DIOXIDE 24.4 mmol/L (21.0-32.0); CHLORIDE - SERUM 107 mmol/L (98-107); CREATININE - SERUM 0.8 mg/dL (0.6-1.3); GLUCOSE 103 mg/dL (74-106); MAGNESIUM - SERUM 1.8 mg/dL (1.8-2.4); POTASSIUM - SERUM 3.3 mmol/L (3.5-5.1); SODIUM 140 mmol/L (136-145); UREA NITROGEN 14 mg/dL (7-18); eGFR NON AFRICAN AMERICAN 76 mL/min (90-120)
[2020-02-15 09:05] VITALS: BP 113/60
[2020-02-15 12:34] VITALS: BP 118/83
--- NOTE | 2020-02-15 13:16 | NUR ---
I have reviewed this patient and I concur with the Shift Assessment completed by the Licensed Practical Nurse today this shift.
[2020-02-15 18:01] VITALS: BP 105/56
[2020-02-15 20:00] VITALS: BP 141/66
[2020-02-16] VITALS: BP 125/62
[2020-02-16 04:00] VITALS: BP 115/65
[2020-02-16 05:40] LABS: BASOPHILS 0.6 % (0-2); EOSINOPHILS 2.9 % (0-7); HEMATOCRIT 36.2 % (36.0-48.0); HEMOGLOBIN 11.6 g/dL (12-16); IMMATURE GRANULOCYTES 0.4 % (0-5); LYMPHOCYTES 37.5 % (15-50); MCH 31.4 pg (26.0-34.0); MCV 97.8 fL (80.0-100.0); MEAN PLATELET VOLUME 10.6 fL (7.4-10.4); MONOCYTES 7.9 % (2-11); NEUTROPHILS 50.7 % (40-80); PLATELET COUNT 327 10x3/uL (130-400); RDW 13.2 % (11.5-14.5); WBC 10.5 10x3/uL (4.8-10.8)
[2020-02-16 06:26] LABS: CALC OSMOLALITY 283 mosm/kg (275-300); CALCIUM 7.5 mg/dL (8.5-10.1); CARBON DIOXIDE 25.2 mmol/L (21.0-32.0); CHLORIDE - SERUM 110 mmol/L (98-107); CREATININE - SERUM 0.7 mg/dL (0.6-1.3); GLUCOSE 99 mg/dL (74-106); MAGNESIUM - SERUM 1.7 mg/dL (1.8-2.4); PHOSPHOROUS 3.1 mg/dL (2.5-4.9); POTASSIUM - SERUM 3.1 mmol/L (3.5-5.1); SODIUM 143 mmol/L (136-145); eGFR NON AFRICAN AMERICAN 88 mL/min (90-120)
[2020-02-16 06:32] LABS: UREA NITROGEN 10 mg/dL (7-18)
--- NOTE | 2020-02-16 07:15 | NUR ---
REC'D IN BED AWAKE AND ALERT. RESP EVEN AND UNLABORED WITH NO DISTRESS NOTED.CAN EXPRESS NEEDS AND WANTS. NO C/O NOTED OR VOICED. ASSESSMENT COMPLETED. C/L IN REACH AT BEDSIDE.
[2020-02-16 08:00] VITALS: BP 149/77
[2020-02-16] MEDS ORDERED: LEVOFLOXACIN500 MG PO (11:59)
[2020-02-16] MEDS ORDERED: FLAGYL500 MG PO (12:00)
[2020-02-16 12:01] VITALS: BP 161/73
--- NOTE | 2020-02-16 14:26 | MORECARE ---
CASE MANAGEMENT DISCHARGE SUMMARY PATIENT: JOSH BAUER SHERYL UNIT: [id number] ADM DATE: 02/14/20 AGE: 69 : 52 SEX: F ROOM/BED: D.2228 AUTHOR: ALIN BENSON PHYSICIAN: REFERRING PHYSICIAN: JOSE MELARA MD DATE OF SERVICE: 02/16/20 Discharge Plan Patient Name: JOSH BAUER Facility: [facility]:[place] : 1950 Planned Disposition: Anticipated Discharge Date: Discharge Date: Expected LOS: Initial Reviewer: [id number] Initial Review Date: 02/16/2020 Generated: 02/16/20 3:26 pm External Providers External Provider: [facility] Next Contact Date: Service Request Date: Service Type: Resolution: Reviewer: Comments: Coverage Notice Reviewer: [id number] Dial Notice Issued Date-Time: 02/16/2020 14:24 Notice Type: IM Discharge Notice Notice Delivered To: Patient Relationship to Patient: Braille Teacher Name: Delivery Method: HAND - Hand Delivered Tamara Days: Prior Verbal Notification: Recipient Understood Notice: Yes Recipient Signature: Yes Med Rec Note Co-signed by Attending: Coverage Notice Comment: Reviewer: [id number] Dial Notice Issued Date-Time: 02/16/2020 14:24 Notice Type: Patient Choice Letter Notice Delivered To: Patient Relationship to Patient: Braille Teacher Name: Delivery Method: HAND - Hand Delivered Tamara Days: Prior Verbal Notification: Recipient Understood Notice: Yes Recipient Signature: Yes Med Rec Note Co-signed by Attending: Coverage Notice Comment: [facility] Patient Name: JOSH BAUER Page [phone] at 1426 All edits/amendments must be made on the electronic document DICTATION DATE: 02/16/20 142 ANTI AIR WARFARE OPERATIONS OFFICER: AIDE 02/16/20 1426 RPT#: [id number] DC DATE: STATUS: ADM IN [facility] [address] [place] [address] END OF REPORT
--- NOTE | 2020-02-16 14:47 | MORECARE ---
CASE MANAGEMENT DISCHARGE SUMMARY PATIENT: JOSH BAUER SHERYL UNIT: [id number] ADM DATE: 02/14/20 AGE: 69 : 52 SEX: F ROOM/BED: D.2228 AUTHOR: MARCELINO,DOC PHYSICIAN: REFERRING PHYSICIAN: JOSE MELARA MD DATE OF SERVICE: 02/16/20 Discharge Plan Patient Name: JOSH BAUER Facility: [facility]:[place] : 1950 Planned Disposition: Anticipated Discharge Date: Discharge Date: Expected LOS: Initial Reviewer: [id number] Initial Review Date: 02/16/2020 Generated: 02/16/20 3:46 pm Comments DCP- Discharge Planning Updated by [email or web address]: Mariaelena Dial on 02/16/20 1:[address] Patient Name: JOSH BAUER Admission Status: ER Accout number: [id number] Admission Date: 02-14-2020 : 1950 Admission Diagnosis:UNSPECIFIED ABDOMINAL PAIN Attending: VALERIA Current LOS: 2 Anticipated DC Date: Planned Disposition: Primary Insurance: [facility] MEDICARE SOLUTIONS Discharge Planning Comments: CM met with patient at bedside after explaining CM role and obtaining verbal consent. CM discussed availability / needs of home health, REHAB and medical equipment. STATES WOULD BENEFIT FROM HH. CLAUDIO SIGNED FOR [facility] AND REFERRAL FAXED. CM TO FOLLOW AND ASISST. IMM SIGNED AND COPY IN CHART. Dinkey Motor Operator: Mariaelena Dial Coverage Notice Reviewer: [id number] Raj Dial Notice Issued Date-Time: 02/16/2020 14:24 Notice Type: IM Discharge Notice Notice Delivered To: Patient Relationship to Patient: Frame Bander Name: Delivery Method: HAND - Hand Delivered Tamara Days: Prior Verbal Notification: Recipient Understood Notice: Yes Recipient Signature: Yes Med Rec Note Co-signed by Attending: Coverage Notice Comment: Reviewer: [id number] Raj Dial Notice Issued Date-Time: 02/16/2020 14:24 Notice Type: Patient Choice Letter Notice Delivered To: Patient Relationship to Patient: Frame Bander Name: Delivery Method: HAND - Hand Delivered Tamara Days: Prior Verbal Notification: Recipient Understood Notice: Yes Recipient Signature: Yes Med Rec Note Co-signed by Attending: Coverage Notice Comment: [facility] Last DP export: 02/16/20 1:26 p Patient Name: JOSH BAUER Page 51550 at 1447 All edits/amendments must be made on the electronic document DICTATION DATE: 02/16/201445 AIRPLANE CLEANER: AIDE 02/16/206 RPT#: [id number] DC DATE: STATUS: ADM IN [facility] [address] [place] [address] END OF REPORT
--- NOTE | 2020-02-16 15:13 | NUR ---
I have reviewed this patient and I concur with the Shift Assessment completed by the Licensed Practical Nurse today this shift.
--- NOTE | 2020-02-16 15:24 | NUR ---
SPOKE WITH DR JARETH WYNN [facility]
--- NOTE | 2020-02-16 16:56 | NUR ---
dc home at this time voice understanding of dc orders. iv dc. stable condition upon departure with all personal belongs.
--- NOTE | 2020-02-17 09:04 | MORECARE ---
CASE MANAGEMENT DISCHARGE SUMMARY PATIENT: JOSH BAUER SHERYL UNIT: [id number] ADM DATE: 02/14/20 AGE: 69 : 52 SEX: F ROOM/BED: D.2228 AUTHOR: MARCELINO,DOC PHYSICIAN: REFERRING PHYSICIAN: JOSE MELARA MD DATE OF SERVICE: 02/17/20 Discharge Plan Patient Name: JOSH BAUER Facility: [facility]:[place] : 1950 Planned Disposition: Anticipated Discharge Date: Discharge Date: 02/16/2020 Expected LOS: Initial Reviewer: [id number] Initial Review Date: 02/16/2020 Generated: 02/17/20 10:03 am Comments DCP- Discharge Planning Updated by [id number]: Mariaelena Dial on 02/16/20 1:[address] Patient Name: JOSH BAUER Admission Status: ER Accout number: [id number] Admission Date: 02-14-2020 : 1950 Admission Diagnosis:UNSPECIFIED ABDOMINAL PAIN Attending: VALERIA Current LOS: 2 Anticipated DC Date: Planned Disposition: Primary Insurance: [facility] MEDICARE SOLUTIONS Discharge Planning Comments: CM met with patient at bedside after explaining CM role and obtaining verbal consent. CM discussed availability / needs of home health, REHAB and medical equipment. STATES WOULD BENEFIT FROM HH. CLAUDIO SIGNED FOR [facility] AND REFERRAL FAXED. CM TO FOLLOW AND ASISST. IMM SIGNED AND COPY IN CHART. Building Surveyor: Mariaelena Dial Coverage Notice Reviewer: [email or web address] Raj Dial Notice Issued Date-Time: 02/16/2020 14:24 Notice Type: IM Discharge Notice Notice Delivered To: Patient Relationship to Patient: Supervisor Machine Workers Name: Delivery Method: HAND - Hand Delivered Tamara Days: Prior Verbal Notification: Recipient Understood Notice: Yes Recipient Signature: Yes Med Rec Note Co-signed by Attending: Coverage Notice Comment: Reviewer: [id number] Raj Dial Notice Issued Date-Time: 02/16/2020 14:24 Notice Type: Patient Choice Letter Notice Delivered To: Patient Relationship to Patient: Supervisor Machine Workers Name: Delivery Method: HAND - Hand Delivered Tamara Days: Prior Verbal Notification: Recipient Understood Notice: Yes Recipient Signature: Yes Med Rec Note Co-signed by Attending: Coverage Notice Comment: [facility] Last DP export: 02/16/20 1:47 p Patient Name: JOSH BAUER Page 87709 at 0904 All edits/amendments must be made on the electronic document DICTATION DATE: 02/17/20902 FILLING OPERATOR: AIDE 02/17/20902 RPT#: [id number] DC DATE:02/16/20 STATUS: DIS IN [facility] [address] [place] [address] END OF REPORT
== END 2020-02-16 16:59 | disposition home health service (06) | DRG 392 ==
LOC: D.ER 17:56 → D.MS 02-14 00:25
PROVIDERS: Family Medicine; Surgery; ADMIT Family Medicine; ATTEND Family Medicine
DX: K57.92 Diverticulitis of intestine, part unspecified, without perforation or abscess without bleeding (principal); N39.0 Urinary tract infection, site not specified; F17.213 Nicotine dependence, cigarettes, with withdrawal; K56.7 Ileus, unspecified; K44.9 Diaphragmatic hernia without obstruction or gangrene; I10 Essential (primary) hypertension; E78.5 Hyperlipidemia, unspecified; K21.9 Gastro-esophageal reflux disease without esophagitis; I25.10 Atherosclerotic heart disease of native coronary artery without angina pectoris; R00.1 Bradycardia, unspecified

== ENCOUNTER 2020-12-31 09:30 | Outpatient (CLI) | payer MEDICARE, MEDICAID ==
[2020-02-14 10:33] VITALS: BMI 37.8
[~2020-12-31 09:30] MED LIST changes: +LEVOFLOXACIN500 MG PO
== END 2020-12-31 23:59 | disposition home or self-care (01) ==
LOC: D.MAMMO 09:30
PROVIDERS: ATTEND Family Medicine
DX: Z12.31 Encounter for screening mammogram for malignant neoplasm of breast (principal)